=== PATIENT | female | born 1995 | race African-American/Black ===

== ENCOUNTER 2019-12-28 19:40 | Inpatient (IN) | payer OTHER ==
[~2019-12-28] VITALS: Ht 160 cm; Wt 92.6 kg
[2019-12-28 19:52] VITALS: BP 145/95
[2019-12-28 20:24] LABS: URINE COLOR YELLOW
[2019-12-28 20:27] LABS: URINE CLARITY HAZY
[2019-12-28 20:28] LABS: URINE LEUKOCYTES-REFLEX 2+ (Negative); URINE NITRITE-REFLEX NEGATIVE (Negative); URINE PROTEIN (DIPSTICK) 2+ (Negative); URINE SPECIFIC GRAVITY 1.015 (1.005-1.035)
[2019-12-28 20:29] LABS: URINE GLUCOSE-RANDOM* NEGATIVE (Negative); URINE KETONES NEGATIVE (Negative); URINE UROBILINOGEN 0.2 E.U./dl (0.2-1.0)
[2019-12-28 20:31] LABS: URINE BLOOD 2+ (Negative)
[2019-12-28 20:34] LABS: URINE BILIRUBIN NEGATIVE (Negative)
[2019-12-28 20:36] LABS: BACTERIA-REFLEX >30 Many /HPF (None Seen); CASTS None Seen /LPF (None Seen); SQUAMOUS 0-3 Few /LPF (0-3); URINE WBC-REFLEX >25 Many /HPF (0-5)
[2019-12-28 20:37] LABS: URINE RBC 3-10 Few /HPF (0-2)
[2019-12-28 20:38] LABS: CRYSTALS None Seen /LPF (None Seen)
[2019-12-28 20:42] LABS: HEMATOCRIT 33.1 % (37.0-47.0); HEMOGLOBIN 10.2 gm/dL (12.0-15.0); MCH 22.9 pg (26.0-34.0); MCHC 30.7 g/dL (28.0-37.0); MCV 74.9 fL (80.0-100.0); PLATELET COUNT 477 thou/uL (150-400); RBC 4.43 mil/uL (4.20-5.00); RDW 26.9 % (10.5-14.5); WBC 14.5 thou/uL (4.0-11.0)
[2019-12-28 20:50] LABS: CALCIUM 9.6 mg/dL (8.5-10.1); CREATININE 3.4 mg/dL (0.6-1.0)
[2019-12-28] MEDS ORDERED: SERTRALINE HCL50 MG PO (20:52)
[2019-12-28 20:56] LABS: ALBUMIN 4.1 g/dL (3.4-5.0); TOTAL BILIRUBIN 0.2 mg/dL (0.2-1.0); TOTAL PROTEIN 9.8 g/dL (6.4-8.2)
[2019-12-28 21:17] LABS: ABSOLUTE NEUTROPHILS 13.2 thou/uL (1.4-8.2)
[2019-12-28 21:18] LABS: LARGE PLATELETS FEW; PLATELET ESTIMATE INCREASED; POIKILOCYTOSIS 1+; POLYCHROMASIA 1+
[2019-12-28 21:19] LABS: ANISOCYTOSIS 3+; HYPOCHROMASIA 2+; MICROCYTES 2+
[2019-12-28 22:24] VITALS: BP 111/84
[2019-12-28 22:34] VITALS: BP 105/66
[2019-12-28 23:12] VITALS: BP 108/69
--- NOTE | 2019-12-29 01:23 | NUR ---
Pt admitted from ED APPROX 2300 w/ARF,UTI&N/V. A/OX4,VSS. Pt denies any N/V or pain on admission. Pt made comfortable in room and admission paperwork signed. She's up ad ochoa,encouraged to call for help as needed. IVF infusing via left hand w/o problems. Resting quietly at this time,eyes closed no distress noted,will continue to monitor pt.
[2019-12-29 04:54] VITALS: BP 99/57
[2019-12-29 05:23] LABS: HEMATOCRIT 27.7 % (37.0-47.0); HEMOGLOBIN 8.6 gm/dL (12.0-15.0); MCH 23.5 pg (26.0-34.0); MCV 75.9 fL (80.0-100.0); RBC 3.64 mil/uL (4.20-5.00); RDW 27.3 % (10.5-14.5); WBC 7.9 thou/uL (4.0-11.0)
[2019-12-29 05:27] LABS: CALCIUM 8.4 mg/dL (8.5-10.1); CREATININE 3.8 mg/dL (0.6-1.0)
[2019-12-29 11:08] LABS: OBSERVED RETIC COUNT 0.83 % (0.6-2.6)
[2019-12-29 11:09] LABS: % SATURATION 8 % (20-39); IRON 16 ug/dL (50-170); TIBC 192 ug/dL (250-450)
--- NOTE | 2019-12-29 14:25 | NUR ---
PT ADMITTED RELATED TO ACUTE RENAL FAILURE,UTI,N/V. CM REVIEWED CHART AND SPOKE WITH CARE TEAM. CM CALLED AND SPOKE WITH PT OVER THE PHONE THIS DAY. PT APPEARED TO BE A&O X4. CM ROLE INTRODUCED. PT INDICATED SHE LIVES IN A HOUSE WITH HER MOTHER WITH 2 STEPS TO ENTER AND NO STEPS INSIDE. 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 PT INDICATED NO HH OR HCBS HX. PT INDICATED SHE PLANS TO RETURN HOME ONCE MEDICALLY STABLE. CM TO FOLLOW INDICATED WITH DC PLANNING.
[2019-12-29 15:02] VITALS: BP 108/72
--- NOTE | 2019-12-29 19:37 | NUR ---
PT A&OX4, VSS, DENIED PAIN, DENIES N/V/D AND DIZZINESS. PATIENT WAS EDUCATED AND ENCOURAGED ON WHY HUGHES CATHETER IS NEEDED. PATIENT REFUSED AND LEFT AMA. AMA PAPERWORK SIGNED. NO SIGNS OF DISTRESS AT LEAVE, ALL BELONGINSGS TAKEN WITH PATIENT AND IV REMOVED.
== END 2019-12-29 18:00 | disposition left against medical advice (07) | DRG 872 ==
LOC: ER 19:40 → EROBS 22:05 → 4W 22:05
PROVIDERS: Nurse Practitioner Family; Physician Assistant; ADMIT Hospitalist; ATTEND Hospitalist
DX: A41.9 Sepsis, unspecified organism (principal); N12 Tubulo-interstitial nephritis, not specified as acute or chronic; N17.9 Acute kidney failure, unspecified; N18.3 Chronic kidney disease, stage 3 (moderate); I12.9 Hypertensive chronic kidney disease with stage 1 through stage 4 chronic kidney disease, or unspecified chronic kidney disease; Z88.1 Allergy status to other antibiotic agents; Z88.2 Allergy status to sulfonamides; Z88.8 Allergy status to other drugs, medicaments and biological substances; Z79.899 Other long term (current) drug therapy; Z53.29 Procedure and treatment not carried out because of patient's decision for other reasons
CPT/HCPCS: 10040

== ENCOUNTER 2020-08-05 13:36 | Emergency (ER) | payer OTHER ==
[~2020-08-05] VITALS: Ht 160 cm; Wt 90.7 kg
[~2020-08-05 13:36] MED LIST: SERTRALINE HCL50 MG PO
[2020-08-05 14:22] LABS: URINE CLARITY CLOUDY
[2020-08-05 14:23] LABS: URINE BILIRUBIN NEGATIVE (Negative); URINE BLOOD 3+ (Negative); URINE GLUCOSE-RANDOM* NEGATIVE (Negative); URINE KETONES NEGATIVE (Negative); URINE LEUKOCYTES-REFLEX 3+ (Negative); URINE NITRITE-REFLEX NEGATIVE (Negative); URINE PROTEIN (DIPSTICK) 2+ (Negative); URINE UROBILINOGEN 0.2 E.U./dl (0.2-1.0)
[2020-08-05 14:25] LABS: WBC CLUMPS Packed (None Seen)
[2020-08-05 14:26] LABS: URINE WBC-REFLEX >25 Many /HPF (0-5)
[2020-08-05 14:31] LABS: BACTERIA-REFLEX >30 Many /HPF (None Seen); SQUAMOUS 0-3 Few /LPF (0-3); URINE RBC >20 Many /HPF (NONE SEEN)
[2020-08-05 14:32] LABS: YEAST-REFLEX Present (None Seen)
[2020-08-05 14:33] LABS: CASTS None Seen /LPF (None Seen); CRYSTALS None Seen /LPF (None Seen)
[2020-08-05 14:50] LABS: CALCIUM 8.6 mg/dL (8.5-10.1); CREATININE 4.1 mg/dL (0.6-1.0); POTASSIUM 3.5 mmol/L (3.5-5.1)
[2020-08-05 14:54] LABS: ABSOLUTE NEUTROPHILS 4.7 thou/uL (1.4-8.2); BASOPHILS 1.5 % (0.0-2.0); EOSINOPHILS 4.8 % (0.0-3.0); HEMATOCRIT 29.5 % (37.0-47.0); HEMOGLOBIN 9.1 gm/dL (12.0-15.0); LYMPHOCYTES 19.7 % (24.0-44.0); MCH 23.3 pg (26.0-34.0); MCHC 30.9 g/dL (28.0-37.0); MCV 75.3 fL (80.0-100.0); MONOCYTES 7.8 % (1.0-8.0); PLATELET COUNT 407 thou/uL (150-400); POLYS 66.2 % (36.0-66.0); RBC 3.92 mil/uL (4.20-5.00); RDW 17.9 % (10.5-14.5); WBC 7.2 thou/uL (4.0-11.0)
[2020-08-05 14:56] LABS: ALBUMIN 3.3 g/dL (3.4-5.0); TOTAL BILIRUBIN 0.2 mg/dL (0.2-1.0); TOTAL PROTEIN 9.3 g/dL (6.4-8.2)
[2020-08-05 16:10] VITALS: BP 151/101
[2020-08-05] MEDS ORDERED: CEPHALEXIN500 MG PO (16:34)
--- NOTE | 2020-08-05 16:40 | EKG ---
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
== END 2020-08-05 16:48 | disposition left against medical advice (07) ==
LOC: ER 13:36
PROVIDERS: Emergency Medicine
DX: N13.8 Other obstructive and reflux uropathy (principal); N39.0 Urinary tract infection, site not specified; R53.1 Weakness; I12.9 Hypertensive chronic kidney disease with stage 1 through stage 4 chronic kidney disease, or unspecified chronic kidney disease; N18.30 Chronic kidney disease, stage 3 unspecified; D68.0 Von Willebrand disease; Z88.1 Allergy status to other antibiotic agents; Z88.2 Allergy status to sulfonamides; Z88.8 Allergy status to other drugs, medicaments and biological substances

== ENCOUNTER 2021-01-03 12:02 | Emergency (ER) | payer OTHER ==
[~2021-01-03] VITALS: Ht 160 cm; Wt 99.3 kg
[~2021-01-03 12:02] MED LIST changes: +CEPHALEXIN500 MG PO
[2021-01-03] MEDS ORDERED: MACROBID 100 M100 M1 PO (12:35)
[2021-01-03] MEDS ORDERED: AMOXICILLIN 50500 MG PO (12:35)
[2021-01-03 12:41] LABS: HEMATOCRIT 36.5 % (37.0-47.0); HEMOGLOBIN 10.8 gm/dL (12.0-15.0); MCH 21.6 pg (26.0-34.0); MCHC 29.5 g/dL (28.0-37.0); MCV 73.2 fL (80.0-100.0); PLATELET COUNT 692 thou/uL (150-400); RBC 4.98 mil/uL (4.20-5.00); RDW 18.5 % (10.5-14.5); WBC 8.2 thou/uL (4.0-11.0)
[2021-01-03 13:16] LABS: URINE BILIRUBIN NEGATIVE (Negative); URINE BLOOD 2+ (Negative); URINE CLARITY CLOUDY; URINE COLOR YELLOW; URINE GLUCOSE-RANDOM* NEGATIVE (Negative); URINE KETONES NEGATIVE (Negative); URINE SPECIFIC GRAVITY 1.015 (1.005-1.035)
[2021-01-03 13:19] LABS: URINE NITRITE-REFLEX NEGATIVE (Negative); URINE PROTEIN (DIPSTICK) TRACE (Negative); URINE UROBILINOGEN 0.2 E.U./dl (0.2-1.0)
[2021-01-03 13:20] LABS: BACTERIA-REFLEX >30 Many /HPF (None Seen); CASTS None Seen /LPF (None Seen); SQUAMOUS 0-3 Few /LPF (0-3); URINE LEUKOCYTES-REFLEX 2+ (Negative); URINE WBC-REFLEX >25 Many /HPF (0-5)
[2021-01-03 13:20] LABS: ANION GAP 14 mmol/L (7-16); BUN 46 mg/dL (7-18); CALCIUM 9.4 mg/dL (8.5-10.1); CHLORIDE 103 mmol/L (98-107); CO2 13 mmol/L (21-32); CREATININE 5.4 mg/dL (0.6-1.0); GLUCOSE 85 mg/dL (74-106); POTASSIUM 5.5 mmol/L (3.5-5.1); SODIUM 130 mmol/L (136-145)
[2021-01-03 13:21] LABS: AMORPHOUS URATES Moderate /LPF (None Seen)
[2021-01-03 13:26] LABS: ALBUMIN 3.6 g/dL (3.4-5.0); DIRECT BILIRUBIN < 0.1 mg/dL (<0.1-0.2); SGOT 14 U/L (15-37); SGPT 20 U/L (30-65); TOTAL BILIRUBIN 0.2 mg/dL (0.2-1.0)
[2021-01-03 13:40] LABS: ABSOLUTE NEUTROPHILS 5.1 thou/uL (1.4-8.2); ANISOCYTOSIS 1+
[2021-01-03 13:41] LABS: HYPOCHROMASIA 1+; MICROCYTES 1+
[2021-01-03] MEDS ORDERED: AUGMENTIN 500-1 EACH PO (14:29)
[2021-01-03 14:39] VITALS: BP 131/84
--- NOTE | 2021-01-03 15:34 | EKG ---
[address] [place] [address] ELECTROCARDIOGRAM REPORT Name: CRISELDA BARFIELD Room #: ELISSA Strickland#: [id number] Admission: 01/03/21 Attend Phys: Discharge: 01/03/21 Date of : [birth year] Report #: [id number] 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
== END 2021-01-03 14:39 | disposition home or self-care (01) ==
LOC: ER 12:02
PROVIDERS: Student in an Organized Health Care Education/Training Program
DX: N39.0 Urinary tract infection, site not specified (principal); Z20.822 Contact with and (suspected) exposure to COVID-19; I12.9 Hypertensive chronic kidney disease with stage 1 through stage 4 chronic kidney disease, or unspecified chronic kidney disease; N18.4 Chronic kidney disease, stage 4 (severe); F32.9 Major depressive disorder, single episode, unspecified; Z88.8 Allergy status to other drugs, medicaments and biological substances; Z88.2 Allergy status to sulfonamides; Z88.1 Allergy status to other antibiotic agents

== ENCOUNTER 2021-01-11 18:50 | Emergency (ER) | payer OTHER ==
[~2021-01-11] VITALS: Ht 160 cm; Wt 96.6 kg
[~2021-01-11 18:50] MED LIST changes: +AMOXICILLIN 50500 MG PO; +AUGMENTIN 500-1 EACH PO; +MACROBID 100 M100 M1 PO
[2021-01-11 19:30] LABS: URINE CLARITY TURBID; URINE COLOR YELLOW
[2021-01-11 19:33] LABS: URINE GLUCOSE-RANDOM* NEGATIVE (Negative); URINE KETONES TRACE (Negative); URINE LEUKOCYTES-REFLEX 3+ (Negative); URINE NITRITE-REFLEX NEGATIVE (Negative); URINE PROTEIN (DIPSTICK) 1+ (Negative); URINE SPECIFIC GRAVITY 1.015 (1.005-1.035)
[2021-01-11 19:34] LABS: URINE BILIRUBIN NEGATIVE (Negative); URINE BLOOD 3+ (Negative); URINE UROBILINOGEN 0.2 E.U./dl (0.2-1.0)
[2021-01-11 19:35] LABS: CASTS None Seen /LPF (None Seen); CRYSTALS None Seen /LPF (None Seen); SQUAMOUS 0-3 Few /LPF (0-3); URINE WBC-REFLEX >25 Many /HPF (0-5)
[2021-01-11 19:40] LABS: HEMATOCRIT 27.8 % (37.0-47.0); HEMOGLOBIN 8.3 gm/dL (12.0-15.0); MCH 21.5 pg (26.0-34.0); MCV 71.8 fL (80.0-100.0); RBC 3.87 mil/uL (4.20-5.00)
[2021-01-11 19:46] LABS: CALCIUM 8.1 mg/dL (8.5-10.1); CREATININE 4.3 mg/dL (0.6-1.0); POTASSIUM 3.5 mmol/L (3.5-5.1)
[2021-01-11 19:50] LABS: ALBUMIN 2.7 g/dL (3.4-5.0); TOTAL BILIRUBIN 0.3 mg/dL (0.2-1.0); TOTAL PROTEIN 8.2 g/dL (6.4-8.2)
[2021-01-11] MEDS ORDERED: CEFPODOXIME PR100 MG PO (20:20)
[2021-01-11 20:29] VITALS: BP 134/93
--- NOTE | 2021-01-12 07:26 | EKG ---
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
== END 2021-01-11 20:30 | disposition home or self-care (01) ==
LOC: ER 18:50
PROVIDERS: Emergency Medicine; Physician Assistant
DX: N39.0 Urinary tract infection, site not specified (principal); I12.9 Hypertensive chronic kidney disease with stage 1 through stage 4 chronic kidney disease, or unspecified chronic kidney disease; N18.4 Chronic kidney disease, stage 4 (severe); F32.9 Major depressive disorder, single episode, unspecified; Z88.8 Allergy status to other drugs, medicaments and biological substances; Z88.2 Allergy status to sulfonamides; Z88.1 Allergy status to other antibiotic agents